=== PATIENT | male | born 1985 | race Caucasian/White ===

== ENCOUNTER 2017-10-26 04:02 | Emergency (ER) | payer SELFPAY ==
[~2017-10-26] VITALS: Ht 177.8 cm; Wt 94.2 kg
[2017-10-26] MEDS ORDERED: CIPROFLOXACN500 MG PO (04:11)
[2017-10-26] MEDS ORDERED: CIPRODEX1 ML OT (04:11)
[2017-10-26] MEDS ORDERED: AUGMENTIN875TAB PO (04:29)
[2017-10-26] MEDS ORDERED: PERCOCET 5/325M1 TAB PO (04:29)
[2017-10-26 04:41] VITALS: BP 137/76
== END 2017-10-26 04:42 | disposition home or self-care (01) | DRG 156 ==
LOC: ED 04:02
DX: H60.91 Unspecified otitis externa, right ear (principal)